=== PATIENT | male | born 1975 | race Two or more races ===

== ENCOUNTER 2018-04-24 13:11 | Emergency (ER) | payer MEDICAID, MEDICARE, OTHER ==
[~2018-04-24] VITALS: Ht 170.2 cm; Wt 77.0 kg
[~2018-04-24 13:11] MED LIST: CETI-102 PO; DIPH25CA83 PO; HYDR25SU32 RC; MECL12.5 PO; NAPR-56 PO; ZIPR80CA2 PO
[2018-04-24 13:28] VITALS: BP 124/80
== END 2018-04-24 14:01 | disposition home or self-care (01) ==
LOC: ER 13:11
DX: F20.9 Schizophrenia, unspecified (principal); F41.9 Anxiety disorder, unspecified; F32.9 Major depressive disorder, single episode, unspecified; Z79.899 Other long term (current) drug therapy; Z76.0 Encounter for issue of repeat prescription
CPT/HCPCS: 99281; 99284

== ENCOUNTER 2018-06-05 02:57 | Emergency (ER) | payer MEDICARE, OTHER ==
[~2018-06-05] VITALS: Ht 170.2 cm; Wt 72.7 kg
[2018-06-05] MEDS ORDERED: diphenhydrAMINE 50 mg/ml inj IM ONE (03:05)
[2018-06-05] MEDS ORDERED: haloperidol lactate 5mg/ml inj IM ONE ×2 (03:05→03:15)
[2018-06-05] MEDS ORDERED: LORazepam 2 mg/ml vial IM ONE (03:05)
[2018-06-05] MEDS ORDERED: haloperidol lactate IV 5 MG/ML inj. ONE (03:17)
[2018-06-05 04:10] LABS: BASOPHILS % (AUTO) 0.6 % (0-1); EOSINOPHILS # (AUTO) 0.1 X10'3 (0-0.9); EOSINOPHILS % (AUTO) 1.6 % (0-6); HEMATOCRIT 33.4 % (42.0-52.0); HEMOGLOBIN 11.1 g/dl (14.0-17.9); LYMPHOCYTES # (AUTO) 0.9 X10'3 (1.1-4.8); LYMPHOCYTES % (AUTO) 10.7 % (21-51); MEAN CORPUSCULAR HGB CONC 33.2 % (33.0-36.5); MEAN CORPUSCULAR VOLUME 87.2 FL (78-98); MEAN PLATELET VOLUME 7.9 FL (7.4-10.4); MONOCYTES # (AUTO) 0.6 X10'3 (0-0.9); NEUTROPHILS # (AUTO) 6.4 X10'3 (1.8-7.7); NEUTROPHILS % (AUTO) 79.1 % (42-75); PLATELET COUNT 266 X10'3 (140-440); RED BLOOD COUNT 3.83 X10'6 (4.70-6.10); RED CELL DISTRIBUTION WIDTH 14.3 % (11.5-14.5)
[2018-06-05 04:21] LABS: ALANINE AMINOTRANSFERASE 28 U/L (12-78); ALBUMIN 3.4 G/DL (3.4-5.0); ALKALINE PHOSPHATASE 40 IU/L (46-116); ANION GAP 10 (8-16); ASPARTATE AMINO TRANSFERASE 36 U/L (10-37); BILIRUBIN,TOTAL 0.4 MG/DL (0.1-1.0); BLOOD UREA NITROGEN 26 MG/DL (7-18); BUN/CREATININE RATIO 17.7 (5.4-32.0); CALCIUM 8.4 MG/DL (8.5-10.1); CHLORIDE 111 MMOL/L (99-107); CREATININE 1.47 MG/DL (0.60-1.10); ETHANOL < 0.010 GM/DL (0.0-0.010); GLUCOSE 117 MG/DL (70-104); POTASSIUM 3.7 MMOL/L (3.5-5.1); SODIUM 147 MMOL/L (135-145); TOTAL CARBON DIOXIDE 26.2 MMOL/L (24-32); TOTAL PROTEIN 6.9 G/DL (6.4-8.2); eGFR 53 ML/MIN
--- NOTE | 2018-06-05 04:53 | NUR ---
Patient brought in law enforcement for erratic behavior after being released from retirement per report, and arrived in shackles and highly agitated. This RN did speak with Charge Nurse regarding appropriateness of placement in overflow and possible disturbances to the therapeutic milieu. Medications administered in the main ER, and patient was transfered to ER overflow 26. Pt noted to be restless and moving around, but no verbal outbursts at this time.
--- NOTE | 2018-06-05 05:02 | NUR ---
Patient was left in own pants after arriving to ED d/t his presenting agitation, no report or note of his pants being searched for possible contraband. Security was called to the unit to assist with searching patient.
--- NOTE | 2018-06-05 05:04 | NUR ---
Security arrived to overflow, and to search patients person/pants. Nothing found per security.
--- NOTE | 2018-06-05 05:30 | NUR ---
In bed, eyes closed, though appears to be awake, fidgiting and restless.
[2018-06-05] MEDS ORDERED: NO HOME MEDS (06:02)
--- NOTE | 2018-06-05 07:18 | NUR ---
Pt sleeping soundly.
--- NOTE | 2018-06-05 08:33 | NUR ---
Attempted to wake pt up for breakfast, but he refuses, just shakes his head "no".
--- NOTE | 2018-06-05 09:26 | NUR ---
Telepsych called. Pt placed in queue.
[2018-06-05 09:44] LABS: URINE AMPHETAMINE SCREEN NEGATIVE (Neg); URINE BARBITUATE SCREEN NEGATIVE (Neg); URINE BENZODIAZEPINES SCREEN NEGATIVE (Neg); URINE CANNABINOID SCREEN NEGATIVE (Neg); URINE COCAINE SCREEN NEGATIVE (Neg); URINE METHADONE SCREEN NEGATIVE (Neg); URINE OPIATE SCREEN NEGATIVE (Neg); URINE PHENCYCLIDINE SCREEN NEGATIVE (Neg)
--- NOTE | 2018-06-05 10:21 | NUR ---
Up talking to psychiatrist via telepsych.
[2018-06-05] MEDS ORDERED: ziprasidone 20mg capsule PO SCH (10:55)
[2018-06-05] MEDS ORDERED: LORazepam 1 MG tablet PO PRN (10:55)
[2018-06-05] MEDS ORDERED: LORazepam 0.5 MG tablet PO PRN (11:01)
[2018-06-05] MEDS ORDERED: LORazepam 2 mg/ml vial IM PRN (11:05)
[2018-06-05] MEDS ORDERED: venlafaxine XR 75mg capsule (Q24H) PO SCH (12:30)
[2018-06-05 18:34] VITALS: BP 120/60
--- NOTE | 2018-06-05 19:03 | NUR ---
Pt discharged. Pt refused food or clothing and left w/o shirt or shoes.
== END 2018-06-05 19:10 | disposition home or self-care (01) ==
LOC: ER 02:58 → MERGE 02:58 → ER 19:10
DX: F29 Unspecified psychosis not due to a substance or known physiological condition (principal)
CPT/HCPCS: 36415; 80053; 80305; 80320; 85025; 96372; 99285; J1200; J1630; J2060

== ENCOUNTER 2018-06-06 16:30 | Emergency (ER) | payer MEDICARE, OTHER ==
[~2018-06-06] VITALS: Ht 170.2 cm; Wt 97.7 kg
[~2018-06-06 16:30] MED LIST changes: +NO HOME MEDS
[2018-06-06 17:03] VITALS: BP 141/88
== END 2018-06-06 17:36 | disposition home or self-care (01) ==
LOC: ER 16:30
DX: F22 Delusional disorders (principal); F41.9 Anxiety disorder, unspecified; F32.9 Major depressive disorder, single episode, unspecified; F20.9 Schizophrenia, unspecified; Z79.899 Other long term (current) drug therapy
CPT/HCPCS: 99281

== ENCOUNTER 2018-06-08 14:51 | Emergency (ER) | payer MEDICARE, OTHER ==
[~2018-06-08] VITALS: Ht 170.2 cm; Wt 94.0 kg
[2018-06-08] MEDS ORDERED: LORazepam 2 mg/ml vial IM PRN ×2 (15:15→18:30)
[2018-06-08] MEDS ORDERED: haloperidol lactate 5mg/ml inj IM PRN (15:15)
[2018-06-08] MEDS ORDERED: diphenhydrAMINE 50 mg/ml inj IM PRN (15:15)
[2018-06-08 15:41] LABS: BASOPHILS % (AUTO) 0.6 % (0-1); EOSINOPHILS # (AUTO) 0.1 X10'3 (0-0.9); EOSINOPHILS % (AUTO) 1.5 % (0-6); HEMATOCRIT 31.9 % (42.0-52.0); HEMOGLOBIN 10.6 g/dl (14.0-17.9); LYMPHOCYTES # (AUTO) 0.6 X10'3 (1.1-4.8); MEAN CORPUSCULAR HGB CONC 33.4 g/dL (33.0-36.5); MEAN CORPUSCULAR VOLUME 86.8 FL (78-98); MONOCYTES # (AUTO) 0.5 X10'3 (0-0.9); MONOCYTES % (AUTO) 8.5 % (2-12); NEUTROPHILS # (AUTO) 5.1 X10'3 (1.8-7.7); NEUTROPHILS % (AUTO) 80.4 % (42-75); PLATELET COUNT 280 X10'3 (140-440); RED BLOOD COUNT 3.67 X10'6 (4.70-6.10); RED CELL DISTRIBUTION WIDTH 14.9 % (11.5-14.5); WHITE BLOOD COUNT 6.3 X10'3 (4.5-11.0)
[2018-06-08 15:55] LABS: ALANINE AMINOTRANSFERASE 34 U/L (12-78); ALBUMIN 3.1 G/DL (3.4-5.0); ALBUMIN/GLOBULIN RATIO 0.8 (1.1-1.5); ALKALINE PHOSPHATASE 46 IU/L (46-116); ANION GAP 6 (8-16); ASPARTATE AMINO TRANSFERASE 34 U/L (10-37); BILIRUBIN,TOTAL 0.4 MG/DL (0.1-1.0); BLOOD UREA NITROGEN 23 MG/DL (7-18); BUN/CREATININE RATIO 16.5 (5.4-32.0); CALCIUM 8.2 MG/DL (8.5-10.1); CHLORIDE 106 MMOL/L (99-107); CREATININE 1.39 MG/DL (0.60-1.10); ETHANOL < 0.010 GM/DL (0.0-0.010); GLUCOSE 112 MG/DL (70-104); POTASSIUM 4.2 MMOL/L (3.5-5.1); SODIUM 141 MMOL/L (135-145); TOTAL CARBON DIOXIDE 28.6 MMOL/L (24-32); TOTAL PROTEIN 6.8 G/DL (6.4-8.2); eGFR 56 ML/MIN
--- NOTE | 2018-06-08 15:55 | NUR ---
RN walked up to patient and patient is talking to himself. Patient sushed RN and continued talking. Patient appears to be responding to internal stimuli and is continuing to talk to himself. Continue to monitor.
[2018-06-08] MEDS ORDERED: VENL75TA90 PO (16:03)
[2018-06-08] MEDS ORDERED: ZIPR80CA2 PO (16:06)
[2018-06-08 16:16] LABS: CLARITY,URINE CLOUDY (Clear); COLOR,URINE YELLOW (Yellow); GLUCOSE, URINE NEGATIVE (Neg); KETONES,URINE NEGATIVE (Neg); LEUKOCYTE ESTERASE ,URINE NEGATIVE (Neg); NITRITES, URINE NEGATIVE (Neg); OCCULT BLOOD,URINE TRACE-INTACT (Neg); PROTEIN,URINE NEGATIVE (Neg)
[2018-06-08 16:17] LABS: UA COLLECTION TYPE CLN CATCH MIDSTREAM
[2018-06-08 16:25] LABS: URINE AMPHETAMINE SCREEN NEGATIVE (Neg); URINE BARBITUATE SCREEN NEGATIVE (Neg); URINE BENZODIAZEPINES SCREEN NEGATIVE (Neg); URINE CANNABINOID SCREEN NEGATIVE (Neg); URINE COCAINE SCREEN NEGATIVE (Neg); URINE METHADONE SCREEN NEGATIVE (Neg); URINE OPIATE SCREEN NEGATIVE (Neg); URINE PHENCYCLIDINE SCREEN NEGATIVE (Neg)
[2018-06-08 16:29] LABS: BACTERIA,URINE 1+ /HPF (Neg); MUCUS STRANDS MODERATE /LPF (Neg); SQUAMOUS EPITHELIAL CELL,UR MODERATE /LPF (FEW); WBC CLUMPS,URINE FEW /HPF (NEGATIVE)
[2018-06-08] MEDS ORDERED: ziprasidone IM 20mg inj **IM only IM PRN (18:30)
--- NOTE | 2018-06-08 18:40 | NUR ---
Received report from Keke ARROYO, patient resting in bed but shows signs of tension due to another patient becoming frustrated. Will continue to monitor.
[2018-06-08] MEDS ORDERED: ibuprofen tablet 400 MG TABLET PO ONE ×2 (19:25)
--- NOTE | 2018-06-08 19:49 | NUR ---
Patient appears agitated but is refusing medications at this time. States he does not want medications against his will. Patient asked if he can leave. Educated that he is on a hold and that the medication can help calm him for the night. Patient refused. Patient is requesting MD to see his knees due to pain. Assessed mild warmth. Notified charge nurse Elizabeth who discussed with MD who ordered ibuprofen. Will continue to monitor. Security at nurse's station due to agitation.
[2018-06-08] MEDS: ziprasidone 20mg capsule PO SCH (21:00)
--- NOTE | 2018-06-08 21:00 | NUR ---
Attempted to medications that are due. Patient resfused and agreed to not be aggressive towards staff, self, or other patients and agreed to stay throughout evening. Will continue to monitor.
--- NOTE | 2018-06-08 21:12 | NUR ---
Patient making groaning noises but appears to be resting calmly at this time. Will continue to monitor.
--- NOTE | 2018-06-09 01:46 | NUR ---
Laying in bed awake, restless at times. Will monitor.
[2018-06-09 05:23] VITALS: BP 132/83
--- NOTE | 2018-06-09 07:00 | NUR ---
Pt received lying in bed, talking to self calmly.
[2018-06-09] MEDS ORDERED: venlafaxine XR 75mg capsule (Q24H) PO SCH (08:00)
[2018-06-09] MEDS: ziprasidone 20mg capsule PO SCH (08:16)
[2018-06-09] MEDS ORDERED: ibuprofen tablet 400 MG TABLET PO PRN (08:25)
--- NOTE | 2018-06-09 09:00 | NUR ---
Pt has been pleasant. Pt took his am geodon but refused his effexor because it wasn't the "normal white pill". Pt was evaluated by [facility] and was found to not meet criteria for a 5150 and will be discharged to self.
== END 2018-06-09 09:20 | disposition home or self-care (01) ==
LOC: ER 14:52
DX: F23 Brief psychotic disorder (principal); F31.9 Bipolar disorder, unspecified; F41.9 Anxiety disorder, unspecified; Z79.899 Other long term (current) drug therapy
CPT/HCPCS: 36415; 80053; 80305; 80320; 81001; 85025; 99285; J1200; J2060

== ENCOUNTER 2018-06-13 23:32 | Emergency (ER) | payer MEDICARE, OTHER ==
[~2018-06-13] VITALS: Ht 170.2 cm; Wt 86.7 kg
[~2018-06-13 23:32] MED LIST changes: -CETI-102 PO; -DIPH25CA83 PO; -HYDR25SU32 RC; -MECL12.5 PO; -NAPR-56 PO; -NO HOME MEDS; +VENL75TA90 PO
[2018-06-13 23:41] VITALS: BP 138/99
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
== END 2018-06-14 00:05 | disposition left against medical advice (07) ==
LOC: ER 23:33
DX: M25.569 Pain in unspecified knee (principal); Z53.21 Procedure and treatment not carried out due to patient leaving prior to being seen by health care provider

== ENCOUNTER 2018-06-16 00:35 | Emergency (ER) | payer MEDICARE, OTHER ==
[~2018-06-16] VITALS: Ht 170.2 cm; Wt 93.2 kg
--- NOTE | 2018-06-16 00:59 | NUR ---
WRAPPER STITCHER WILL ASKED PT TO GET INTO GOWN, PT REFUSING, SECURITY BEING CALLED TO HELP ASSIST.
--- NOTE | 2018-06-16 01:09 | NUR ---
WHILE DISROBING PT GEORGES WAS OBTAINED AND PUT INTO SAFE A TOTAL OF $396 GEORGES ON PT.
--- NOTE | 2018-06-16 01:40 | NUR ---
TATY TREVINO AND VINCENT WENT THROUGH PTS BELONGINGS WITH PT AND DOCUMENTED ALL BELONGINGS. REGISTRATION CAME AND DOCUMENTED GEORGES AND LOCKED IT UP. PTS BELONGINGS LOCKED UP IN AMBULANCE BAY LOCKERS.
[2018-06-16 01:41] LABS: BASOPHILS # (AUTO) 0.1 X10'3 (0-0.2); BASOPHILS % (AUTO) 0.9 % (0-1); EOSINOPHILS # (AUTO) 0.3 X10'3 (0-0.9); EOSINOPHILS % (AUTO) 4.2 % (0-6); HEMATOCRIT 30.6 % (42.0-52.0); LYMPHOCYTES # (AUTO) 1.7 X10'3 (1.1-4.8); MEAN CORPUSCULAR HEMOGLOBIN 28.4 PG (27.0-31.0); MEAN CORPUSCULAR HGB CONC 32.7 g/dL (33.0-36.5); MEAN CORPUSCULAR VOLUME 86.8 FL (78-98); MEAN PLATELET VOLUME 7.8 FL (7.4-10.4); MONOCYTES # (AUTO) 0.8 X10'3 (0-0.9); MONOCYTES % (AUTO) 11.6 % (2-12); NEUTROPHILS % (AUTO) 59.3 % (42-75); PLATELET COUNT 360 X10'3 (140-440); RED BLOOD COUNT 3.53 X10'6 (4.70-6.10); RED CELL DISTRIBUTION WIDTH 13.4 % (11.5-14.5); WHITE BLOOD COUNT 6.9 X10'3 (4.5-11.0)
[2018-06-16 01:50] LABS: ALANINE AMINOTRANSFERASE 40 U/L (12-78); ALBUMIN 2.8 G/DL (3.4-5.0); ALBUMIN/GLOBULIN RATIO 0.8 (1.1-1.5); ALKALINE PHOSPHATASE 48 IU/L (46-116); ANION GAP 9 (8-16); ASPARTATE AMINO TRANSFERASE 46 U/L (10-37); BILIRUBIN,TOTAL 0.2 MG/DL (0.1-1.0); BLOOD UREA NITROGEN 21 MG/DL (7-18); BUN/CREATININE RATIO 15.8 (5.4-32.0); CALCIUM 8.1 MG/DL (8.5-10.1); CHLORIDE 104 MMOL/L (99-107); CREATININE 1.33 MG/DL (0.60-1.10); GLUCOSE 78 MG/DL (70-104); POTASSIUM 3.9 MMOL/L (3.5-5.1); SODIUM 140 MMOL/L (135-145); TOTAL CARBON DIOXIDE 27.4 MMOL/L (24-32); TOTAL PROTEIN 6.4 G/DL (6.4-8.2); eGFR 59 ML/MIN
[2018-06-16 01:54] LABS: ETHANOL < 0.010 GM/DL (0.0-0.010)
--- NOTE | 2018-06-16 02:22 | NUR ---
CONTACTED TELEPSYCH TO INITIATE CONSULT
--- NOTE | 2018-06-16 06:30 | NUR ---
PATIENT INSIDE THE ROOM SITTING AT THE EDGE OF THE BED.
--- NOTE | 2018-06-16 06:45 | NUR ---
PATIENT UP TO THE BATHROOM ASSISTED WITH MALE STAFF.
[2018-06-16] MEDS ORDERED: LORazepam 2 mg/ml vial IM ONE (07:10)
[2018-06-16] MEDS ORDERED: diphenhydrAMINE 50 mg/ml inj IM ONE (07:10)
[2018-06-16] MEDS ORDERED: haloperidol lactate 5mg/ml inj IM ONE (07:10)
--- NOTE | 2018-06-16 07:15 | NUR ---
PATIENT NOTED WITH VISUAL HALLUCINATION,NOT ABLE TO REDIRECT,YELLING "HOOHAAA!",SECURITY PRESENT,DR. LONG ORDERED PRN MEDS AND PLACED PATIENT ON A 4 POINT RESTRAINT.WILL MONITOR.
--- NOTE | 2018-06-16 07:40 | NUR ---
unable to do psych assessment,patient asleep.
--- NOTE | 2018-06-16 07:41 | NUR ---
PATIENT ASLEEP,ATTACHED TO A MONITOR.
--- NOTE | 2018-06-16 08:12 | NUR ---
PATIENT ASLEEP,RESPIRATIONS REGULAR.ON 3 POINT SOFT LIMB RESTRAINT AT THIS TIME.DC'D RIGHT FOOT RESTRAINT.
--- NOTE | 2018-06-16 09:00 | NUR ---
3 point restraint dc'd.patient asleep at this time.
--- NOTE | 2018-06-16 10:00 | NUR ---
PATIENT LYING ON RIGHT SIDE APPEARS TO BE SLEEPING RR EVEN AND UNLABORED
--- NOTE | 2018-06-16 12:00 | NUR ---
PT LYING ON LEFT SIDE APPEARS TO BE SLEEPING RR EVEN AND UNLABORED
--- NOTE | 2018-06-16 14:58 | NUR ---
PATIENT APPROACHED ME AT THE CHARGE NURSE DESK. I RETURNED HIM TO HIS ROOM. USING A CALM VOICE. PATIENT CAME BACK OUT I ASKED HIM AGAIN TO SIT DOWN. PATIENT STATED TO ME " I AM THE ONE" YOU'RE COMING WITH ME" WE ARE LEAVING NOW. SECURITY CALLED FOR STANDBY
[2018-06-16] MEDS ORDERED: OLANZapine 2.5MG tablet PO ONE (15:15)
--- NOTE | 2018-06-16 16:00 | NUR ---
went in to give patient medication; patient asked if it was an order, i told him that it was and he took his medication. received urine sample
[2018-06-16 16:15] LABS: URINE AMPHETAMINE SCREEN NEGATIVE (Neg); URINE BARBITUATE SCREEN NEGATIVE (Neg); URINE BENZODIAZEPINES SCREEN NEGATIVE (Neg); URINE CANNABINOID SCREEN NEGATIVE (Neg); URINE COCAINE SCREEN NEGATIVE (Neg); URINE METHADONE SCREEN NEGATIVE (Neg); URINE OPIATE SCREEN NEGATIVE (Neg); URINE PHENCYCLIDINE SCREEN NEGATIVE (Neg)
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
--- NOTE | 2018-06-16 22:17 | NUR ---
PT LAY ON SIDE, RESP EVEN , UNLABORED.
--- NOTE | 2018-06-17 01:32 | NUR ---
PT REQUESTING SNACK, GIVEN JUICE AND CRACKERS. PT CALMLY SITTING ON BED.
[2018-06-17] MEDS ORDERED: LORazepam 1 MG tablet PO PRN (07:25)
[2018-06-17] MEDS ORDERED: OLANZapine 5mg rapidly disint. tablet PO ONE (07:25)
[2018-06-17] MEDS ORDERED: ziprasidone 20mg capsule PO ONE (08:35)
[2018-06-17] MEDS: ziprasidone 20mg capsule PO SCH ×3 (10:32→21:37)
--- NOTE | 2018-06-17 11:36 | NUR ---
[facility] CALLED FOR A REFERAL FOR THE PT.
--- NOTE | 2018-06-17 11:42 | NUR ---
MATT OLIVEIRA RIDGELEY IS EVALUATING PT FOR POSSIBLE ADMISSION.
[2018-06-17] MEDS ORDERED: acetaminophen 325mg tablet PO ONE (18:55)
[2018-06-17] MEDS ORDERED: non-formulary drug (Ziprasidone Hcl (Geodon) 1 CAP) PO SCH (21:00)
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
--- NOTE | 2018-06-17 21:55 | NUR ---
AFTER REPEPEATED ATTEMPTS TO REDIRECT PATIENT, HE CONTINUES TO HAVE SMALL AGITATED BURSTS. Addendum: 06/17/18 at 2314 by TIFFANY NOTE CONTINUED, ORDERS FOR MEDS AT THIS TIME.
[2018-06-17] MEDS: diphenhydrAMINE 50 mg/ml inj IM PRN (22:10)
[2018-06-17] MEDS: LORazepam 2 mg/ml vial IM PRN (22:10)
[2018-06-17] MEDS: haloperidol lactate 5mg/ml inj IM PRN (22:10)
--- NOTE | 2018-06-17 22:31 | NUR ---
PT SLEEPING QUIETLY, NO ACUTE DISTRESS NOTED AT THIS TIME.
--- NOTE | 2018-06-18 04:06 | NUR ---
PT AWAKE AMBULATED TO BR, TOLERATED WELL.
--- NOTE | 2018-06-18 04:12 | NUR ---
PT BACK TO BED, QUIET
--- NOTE | 2018-06-18 06:34 | NUR ---
PT AMB TO BATHROOM ESCORTED BY TECH. NO S/S AGITATION.
[2018-06-18] MEDS: ziprasidone 20mg capsule PO SCH ×3 (07:03→19:10)
[2018-06-18] MEDS: venlafaxine XR 75mg capsule (Q24H) PO SCH (07:03)
[2018-06-18] MEDS ORDERED: ziprasidone 20mg capsule PO SCH (08:00)
[2018-06-18] MEDS ORDERED: diphenhydrAMINE 50 mg/ml inj IM ONE (08:15)
[2018-06-18] MEDS ORDERED: LORazepam 2 mg/ml vial IM ONE (08:15)
[2018-06-18] MEDS ORDERED: haloperidol lactate 5mg/ml inj IM ONE (08:15)
--- NOTE | 2018-06-18 08:17 | NUR ---
pt. has made multiple trips to the bathroom and back to his room with out incident.... pt. all the sudden stated that he was told that he would be released at 0800.... he is pointing at the clock stateing that it is after 0800 he wants his close and he is leaving. i explained to him that the mental health has not been in yet to make that desicion. pt. is now got his shirt off and is trying to move past staff to get out.... security called. " pt. states " you guys lied to me" you said i could leave at 0800. securityl in room talking down pt.
--- NOTE | 2018-06-18 08:32 | NUR ---
PT IS COMING OUT OF HIS ROOM AND DEMANDING THAT HE BE DISCHARGED. ASKING WHERE MENTAL HEALTH STAFF ARE SO THEY CAN LET HIM GO. PT IS AGITATED. SECURITY IS CALLED FOR STANDBY AND DR SANDERSON IS NOTIFIED AND ORDERS RECEIVED. ADMIN MEDICATION ORDERED. PT IS NOW RESTING QUIETLY ON HIS GURNEY IN ROOM 14.
--- NOTE | 2018-06-18 08:42 | NUR ---
ESCORT PT TO BATHROOM AND BACK. IN ROOM PT WANTS TO TALK TO THE NURSE AND IS TRYING TO TELL A STORY ABOUT HIS NAME AND ANOTHER PERSON WHO THE SAME YEAR HE WAS BORN. PT IS DIFFICULT TO UNDERSTAND BUT WANTS TO TALK AND TELL HIS STORY.
--- NOTE | 2018-06-18 13:20 | NUR ---
WAKE PT UP TO GIVE HIS 1300 GEODON DOSE AND HIS LUNCH TRAY. PT IS CALM AND COOPERTIVE.
--- NOTE | 2018-06-18 13:45 | NUR ---
PT AMB TO BATHROOM AND BACK TO ROOM. NO S/S AGITATION.
--- NOTE | 2018-06-18 18:33 | NUR ---
Report give to Mattie ARROYO prior to pt being transferred with staff and psychiatric security nurse from ed15 to ed22. Need for current VS communicated
--- NOTE | 2018-06-18 18:38 | NUR ---
Rec'd report from Heidy, patient was brought over from main ER w/o problem. He is A&O x3, VELAZQUEZ and is appropriate but quiet. At this time he is sitting up in bed eating dinner. I will continue to monitor.
[2018-06-19] MEDS ORDERED: LORazepam 2 mg/ml vial IM ONE (00:25)
[2018-06-19] MEDS ORDERED: haloperidol lactate 5mg/ml inj IM ONE (00:25)
[2018-06-19] MEDS ORDERED: diphenhydrAMINE 50 mg/ml inj IM ONE (00:25)
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
[2018-06-19] MEDS ORDERED: haloperidol lactate 5mg/ml inj IM PRN ×2 (00:45)
[2018-06-19] MEDS ORDERED: LORazepam 2 mg/ml vial IM PRN ×2 (00:45)
[2018-06-19] MEDS ORDERED: diphenhydrAMINE 50 mg/ml inj IM PRN ×2 (00:45)
[2018-06-19] MEDS: LORazepam 2 mg/ml vial IM PRN (02:18)
[2018-06-19] MEDS: diphenhydrAMINE 50 mg/ml inj IM PRN (02:18)
[2018-06-19] MEDS: haloperidol lactate 5mg/ml inj IM PRN (02:18)
--- NOTE | 2018-06-19 02:24 | NUR ---
Pt. became agitated. he became more vocal and stated to security that he wanted to know where the exit was. When the primary nurse retrieved medication, the pt. attempted to flee.Security assisted the patient back to his bed where he recieved an IM shot to decrease patient's agitation.
[2018-06-19] MEDS ORDERED: ziprasidone IM 20mg inj **IM only IM ONE (05:10)
[2018-06-19] MEDS ORDERED: diphenhydrAMINE 25mg capsule PO ONE (05:10)
[2018-06-19] MEDS ORDERED: LORazepam 1 MG tablet PO ONE (05:10)
[2018-06-19] MEDS: ziprasidone 20mg capsule PO SCH ×2 (07:08→12:27)
[2018-06-19] MEDS: venlafaxine XR 75mg capsule (Q24H) PO SCH (07:08)
--- NOTE | 2018-06-19 07:59 | NUR ---
Rachael from Mental Health talked with pt. Stated she will renew his [id number]. Pt. cooperative this am.
--- NOTE | 2018-06-19 10:31 | NUR ---
Pt. up and down to the bathroom. Pt. willingly took an Ativan this am for slight restlessness. Pt. frequently requiring an update on his plan of care.
--- NOTE | 2018-06-19 11:15 | NUR ---
Pt. lying in bed with eyes c losed now. Was up walking around earlier wanting to leave and stating he was being "held against his will." Security was able to talk to pt. and calm him down.
--- NOTE | 2018-06-19 12:22 | NUR ---
Saima from [facility] called to inquire about pt. States she will contact [facility].
--- NOTE | 2018-06-19 13:47 | NUR ---
Pt lying on right side with eyes closed and even, unlabored respirations.
[2018-06-19 17:18] VITALS: BP 128/80
--- NOTE | 2018-06-19 17:40 | NUR ---
A ride is on their way [facility] now.
--- NOTE | 2018-06-19 17:54 | NUR ---
Pt. left with truck driver salesperson and security with all belongings. Pt. cooperative and pleasant at discharge.
== END 2018-06-19 17:56 | disposition home or self-care (01) ==
LOC: ER 00:36
DX: F29 Unspecified psychosis not due to a substance or known physiological condition (principal); F41.9 Anxiety disorder, unspecified; F32.9 Major depressive disorder, single episode, unspecified; F20.9 Schizophrenia, unspecified; Z79.899 Other long term (current) drug therapy
CPT/HCPCS: 36415; 80053; 80305; 80320; 85025; 96372; 99285; J1200; J1630; J2060; J3486

== ENCOUNTER 2018-06-30 03:08 | Emergency (ER) | payer MEDICARE, OTHER ==
[~2018-06-30] VITALS: Ht 170.2 cm; Wt 73.8 kg
[2018-06-30 03:18] VITALS: BP 165/99
== END 2018-06-30 05:09 | disposition home or self-care (01) ==
LOC: ER 03:08
DX: G89.29 Other chronic pain (principal); M25.561 Pain in right knee; M25.562 Pain in left knee; Z79.899 Other long term (current) drug therapy
CPT/HCPCS: 99281

== ENCOUNTER → 2020-09-09 | Emergency (ER) | payer MEDICARE ==
[~2020-09-09] VITALS: Ht 170.2 cm; Wt 67.0 kg
[~2020-09-09] MED LIST changes: +TETanus/Pertussis (Acell)/Diphther VAC/PF (Tdap-Adult) 0.5ml syringe IMVAC ONE; +bacitracin 15gm ointment TP ONE
[2020-09-09 04:05] VITALS: BP 145/107
== END ==
LOC: ER 03:03
DX: S31.134A Puncture wound of abdominal wall without foreign body, left lower quadrant without penetration into peritoneal cavity, initial encounter (principal); S31.130A Puncture wound of abdominal wall without foreign body, right upper quadrant without penetration into peritoneal cavity, initial encounter; G89.29 Other chronic pain; Z72.89 Other problems related to lifestyle; Z79.899 Other long term (current) drug therapy; X58.XXXA Exposure to other specified factors, initial encounter; Y93.89 Activity, other specified; Y92.89 Other specified places as the place of occurrence of the external cause; Y99.8 Other external cause status
CPT/HCPCS: 99283